=== PATIENT | male | born 1975 | race Caucasian/White ===

== ENCOUNTER 2020-01-12 15:37 | Outpatient (CLI) | payer BC, SELFPAY ==
--- NOTE | ~2020-01-12 | US_ITS ---
EXAMINATION: US scrotum doppler DATE: 01/12/2020 16:12 INDICATION: Orchialgia TECHNIQUE: Testicular sonogram utilizing grayscale and Doppler COMPARISON: None. FINDINGS: The right testis measures 3.8 x 2.0 x 2.8 cm. The left testis measures 3.8 x 2.0 x 2.7 cm. Symmetric normal grayscale appearance to both testes. There is normal vascular flow to both testes. 4 mm right epididymal cyst. The right epididymis is otherwise normal with normal vascular flow. The left epididy mis is normal with normal vascular flow. There is no varicocele or hydrocele. IMPRESSION: 1. Likely incidental 4 mm right epididymal cyst. Otherwise normal scrotal ultrasound. Reviewed, dictated and finalized at location A. IMPRESSION: 1. Likely incidental 4 mm right epididymal cyst. Otherwise normal scrotal ultr asound.
== END 2020-01-12 15:38 | disposition home or self-care (01) ==
PROVIDERS: PCP Nurse Practitioner Adult Health; Visit Provider Urology
DX: N50.3 Cyst of epididymis (principal)
CPT/HCPCS: 76870; 93976

== ENCOUNTER 2020-08-11 08:27 | Outpatient (CLI) | payer BC, SELFPAY | END 2020-08-11 08:28 | disposition home or self-care (01) | LOC: ANHCOVIDVC 08:27 | PROVIDERS: PCP Nurse Practitioner Adult Health | DX: Z23 Encounter for immunization (principal) | CPT/HCPCS: 0001A; 91300 ==

== ENCOUNTER 2020-09-01 08:25 | Outpatient (CLI) | payer BC, SELFPAY | END 2020-09-01 08:26 | disposition home or self-care (01) | LOC: ANHCOVIDVC 08:26 | PROVIDERS: PCP Nurse Practitioner Adult Health | DX: Z23 Encounter for immunization (principal) | CPT/HCPCS: 0002A; 91300 ==

== ENCOUNTER 2023-02-27 00:59 | Day surgery (SDC) | payer BC, SELFPAY ==
[2023-02-19 14:32] VITALS: BMI 26.0
[2023-02-27 07:44] VITALS: BP 158/113; PULSE 84; RESP 16; TEMP 36.3; O2SAT 100; BMI 24.5
[2023-02-27] MEDS: LACTATED RINGERS 1,000 ML 150 ML IV CONT (07:51)
--- NOTE | 2023-02-27 08:48 | P.PNAN_ITS ---
Anes - Initial Pre Proc Eval Procedure: Operation Date: 02/27/23 09:00 Proposed Procedures p Screening Colonoscopy - Miguel Angel Pike MD Date/Time: 02/27/23 08:48 Surgeon: Miguel Angel Pike MD Pre Op Diagnosis: neoplasm screening Patient Data Age: 48 Gender: M Height: 1.75 m Weight: 75.3 kg Last Vital Signs Temp 97.3 F L 02/27/23 07:44 Pulse 84 02/27/23 07:44 Resp 16 02/27/23 07:44 BP 158/113 H 02/27/23 07:44 Pulse Ox 100 02/27/23 07:44 O2 Del Method Room Air 02/27/23 07:44 Allergies Allergy/AdvReac Type Severity Reaction Status Date / Time No Known Allergies Allergy Verified 02/27/23 07:43 Home Medications Medication Instructions Recorded Confirmed Type lisinopril 20 mg tablet 20 mg PO DAILY #90 tabs 09/14/22 02/27/23 Rx alprazolam 0.5 mg tablet 0.5 mg PO BID PRN anxiety #60 tabs 02/13/23 02/27/23 Rx Patient hx anesthesia problems: none Family hx anesthesia problems: none Results Review: All pre-operative results and documents have been reviewed as part of the pre- operative evaluation. [facility] Past Medical History Medical History Anxiety Hypertension Surgical History Surgical History H/O: vasectomy 2009 Family History Family History Father Alcohol abuse Grandparent Alcohol abuse Diabetes mellitus Cerebrovascular accident Mother Hypertension Depression Anxiety Cerebrovascular accident Social History Social History Smoking packs per day: 0.5 Smoking cigarettes per day: 10.0 Years smoked: 18 Smoking pack-years: 9.00 Smoking status: Current every day smoker Tobacco type: cigarettes Alcohol intake: current Drinks per week: 12 Alcohol use details: beer monthly Substance use: current Substance use type: marijuana Last use: one time per month Lack of Transportation: No Lack of Food: Never True Current Housing: I Have Housing Concerned About Future Housing: No Difficulty Paying Gas/Electric Bills: No Difficulty Paying for Meds: No Currently Unemployed: No Education: Trade/Vocational Certificate Difficulty w/ Childcare or Family Care: No Living arrangements: with family Spiritual care concerns: No Anes - Eval Final PreProcedure Day of Procedure 02/27/23 08:48 Patient weight: normal Heart: regular rate and rhythm Lungs: clear to auscultation Airway: Mallampati scale class II Neurological: alert and oriented Last oral intake: >/= 8 hours ASA classification: II Emergent: no Anesthetic plan: proceed Anesthesia type and monitoring: general GIVS and standard monitoring Results Review: All pre-operative results and documents have been reviewed as part of the pre- operative evaluation. Informed Consent: The patient's anesthetic plan and its attendant risks and benefits were discussed with the patient/family/POA. Questions were solicited and answers provided to the satisfaction of the patient/family/POA.
--- NOTE | 2023-02-27 08:50 | PM.HPGS ---
History of Present Illness History of Present Illness Consent: Risks, benefits, and alternatives have been discussed and questions answered. Patient agrees to proceed with procedure. Chief complaint: neoplasm screening Narrative: Jeovanny Jones is a 48 year old male here for first screening colonoscopy Review of Systems Constitutional: Constitutional: Denies headache(s) and Denies weakness Eyes: Eyes: Denies blurry vision ENT: Reports Normal hearing present, Denies headache(s) and Denies neck pain Cardiovascular: Cardiovascular: Denies chest pain and Denies dyspnea Respiratory: Respiratory: Denies dyspnea Gastrointestinal: Gastrointestinal: Reports no additional gastrointestinal complaints Genitourinary: Genitourinary: Denies dysuria Musculoskeletal: Musculoskeletal: Denies neck pain Integumentary/Breasts: Skin/Breast: Denies dry skin Neurologic: Reports Normal hearing present, Denies headache(s) and Denies weakness Psychiatric: Psychiatric: Denies anxiety Endocrine: Endocrine: Denies change in body appearance Hematologic/Lymphatic: Hematologic/Lymphatic: Denies easy bleeding Allergic/Immunologic: Allergic/Immunologic: Denies urticaria PMF Past Medical History Medical History (Updated 02/27/23 @ 08:51 by iMguel Angel Pike MD) Anxiety Colon cancer screening Hypertension Surgical History Surgical History H/O: vasectomy 2009 Family History Family History Father Alcohol abuse Grandparent Alcohol abuse Diabetes mellitus Cerebrovascular accident Mother Hypertension Depression Anxiety Cerebrovascular accident Social History Social History Smoking packs per day: 0.5 Smoking cigarettes per day: 10.0 Years smoked: 18 Smoking pack-years: 9.00 Smoking status: Current every day smoker Tobacco type: cigarettes Alcohol intake: current Drinks per week: 12 Alcohol use details: beer monthly Substance use: current Substance use type: marijuana Last use: one time per month Lack of Transportation: No Lack of Food: Never True Current Housing: I Have Housing Concerned About Future Housing: No Difficulty Paying Gas/Electric Bills: No Difficulty Paying for Meds: No Currently Unemployed: No Education: Trade/Vocational Certificate Difficulty w/ Childcare or Family Care: No Living arrangements: with family Spiritual care concerns: No Meds Home Medications and Allergies Home Medications Medication Instructions Recorded Confirmed Type lisinopril 20 mg tablet 20 mg PO DAILY #90 tabs 09/14/22 02/27/23 Rx alprazolam 0.5 mg tablet 0.5 mg PO BID PRN anxiety #60 tabs 02/13/23 02/27/23 Rx Allergies Allergy/AdvReac Type Severity Reaction Status Date / Time No Known Allergies Allergy Verified 02/27/23 07:43 Vital Signs Vital Signs - 24 hr 02/27/23 07:44 Temperature 97.3 F L Pulse Rate 84 Respiratory Rate 16 Blood Pressure 158/113 H Pulse Oximetry 100 Oxygen Delivery Room Air Exam Const: General: comfortable and no acute distress HENMT: Face/Nose/Sinus: Normal nares present Eyes: General: appearance normal, both eyes and all related structures Neck: Neck: no JVD Resp: Auscultation: clear to auscultation bilaterally Cardio: Rate: regular rate Rhythm: regular rhythm GI: Inspection: non-distended GI Palp: Yes Soft to palpation Skin: General skin exam: normal color Neuro: General: gait normal Speech: normal speech Extrem: General: normal to inspection Psych: Mental Status: mental status grossly normal Assessment and Plan Assessment and plan (1) Colon cancer screening: Code(s): Z12.11 - Encounter for screening for malignant neoplasm of colon Status: Acute Assessment and Plan: colonoscopy
[2023-02-27 09:20] VITALS: BP 134/91; PULSE 99; RESP 21; O2SAT 98
[2023-02-27 09:30] VITALS: BP 142/99; PULSE 80; RESP 19; O2SAT 99
[2023-02-27 09:40] VITALS: BP 149/106; PULSE 79; RESP 17; O2SAT 100
== END 2023-02-27 09:44 | disposition home or self-care (01) ==
PROVIDERS: PCP Physician Assistant; Visit Provider Internal Medicine Gastroenterology
PROC: 0DJD8ZZ Inspection of Lower Intestinal Tract, Via Natural or Artificial Opening Endoscopic (ICD-10-PCS; CPT 45378; principal; 2023-02-27 09:00)
DX: Z12.11 Encounter for screening for malignant neoplasm of colon (principal); I10 Essential (primary) hypertension; F41.9 Anxiety disorder, unspecified; F17.210 Nicotine dependence, cigarettes, uncomplicated; F12.90 Cannabis use, unspecified, uncomplicated
CPT/HCPCS: 45378; J2704; J7120